=== PATIENT | female | born 1940 | race Caucasian/White ===

== ENCOUNTER → 2024-03-13 14:04 | Outpatient (CLI) | payer MEDICARE, MEDICAID, SELFPAY | PROVIDERS: PCP Internal Medicine; Referring Provider Internal Medicine; Visit Provider Physician Assistant | DX: L97.822 Non-pressure chronic ulcer of other part of left lower leg with fat layer exposed (principal); L97.812 Non-pressure chronic ulcer of other part of right lower leg with fat layer exposed; I87.2 Venous insufficiency (chronic) (peripheral); I89.0 Lymphedema, not elsewhere classified; R60.0 Localized edema; L53.9 Erythematous condition, unspecified; Z79.01 Long term (current) use of anticoagulants | CPT/HCPCS: 11042; 99204; 99213 ==

== ENCOUNTER → 2024-03-17 15:09 | Outpatient (CLI) | payer MEDICARE, MEDICAID, SELFPAY ==
--- NOTE | 2024-03-17 15:12 | DI.US.S_ITS ---
PROCEDURE: US ARTERIAL DUPLEX LE BI INDICATIONS: ulcers on bilateral lower extremities TECHNIQUE: Color and pulse Doppler interrogation was performed of both lower extremity arterial systems, with image documentation. COMPARISON: None. FINDINGS: Right lower extremity: Common femoral artery: 115 cm/sec, triphasic Deep femoral artery: Nonvisualized Proximal superficial femoral artery: 91 cm/sec, with triphasic flow. Mid superficial femoral artery: 130 cm/sec, with triphasic flow. Distal superficial femoral artery: 68 cm/sec, with triphasic flow. Popliteal artery: 86 cm/sec, with triphasic flow. Posterior tibial artery: Nonvisualized Anterior tibial artery/dorsalis pedis: 83 cm/sec, with slight parvus tardus flow. Arguello-scale imaging description: [id number] atherosclerotic plaque Left lower extremity: Common femoral artery: 174 cm/sec, with triphasic flow. Deep femoral artery: Nonvisualized. Proximal superficial femoral artery: 138 cm/sec, with triphasic flow. Mid superficial femoral artery: 163 cm/sec, with triphasic flow. Distal superficial femoral artery: Nonvisualized Popliteal artery: 127 cm/sec, Posterior tibial artery: Nonvisualized Anterior tibial artery/dorsalis pedis: 122 cm/sec, with mild parvus tardus flow. Arguello-scale imaging description: Mild to moderate atherosclerotic plaque IMPRESSION: 1. Nonvisualized bilateral posterior tibial arteries; cannot exclude complete obstruction. 2. Postobstructive waveforms to the only visualized [id number] arteries, the bilateral dorsalis pedis. Dictated by: Long Lambert M.D. on 03/18/2024 at 11:54 Approved by: Long Lambert M.D. on 03/18/2024 at 12:51
== END ==
PROVIDERS: PCP Internal Medicine; Referring Provider Physician Assistant; Visit Provider Physician Assistant
DX: L97.919 Non-pressure chronic ulcer of unspecified part of right lower leg with unspecified severity (principal); I70.202 Unspecified atherosclerosis of native arteries of extremities, left leg; I70.201 Unspecified atherosclerosis of native arteries of extremities, right leg
CPT/HCPCS: 93925

== ENCOUNTER → 2024-03-27 13:05 | Outpatient (CLI) | payer MEDICARE, MEDICAID, SELFPAY | LOC: WC 13:06 | PROVIDERS: PCP Internal Medicine; Referring Provider Internal Medicine; Visit Provider Physician Assistant | DX: I89.0 Lymphedema, not elsewhere classified (principal); E11.628 Type 2 diabetes mellitus with other skin complications; Z79.01 Long term (current) use of anticoagulants | CPT/HCPCS: 99212; 99213 ==

== ENCOUNTER → 2024-07-10 09:54 | Outpatient (CLI) | payer MEDICAID, SELFPAY | LOC: WC 10:25 | PROVIDERS: PCP Internal Medicine; Referring Provider Podiatrist; Visit Provider Physician Assistant | DX: I89.0 Lymphedema, not elsewhere classified (principal); L97.822 Non-pressure chronic ulcer of other part of left lower leg with fat layer exposed; L97.812 Non-pressure chronic ulcer of other part of right lower leg with fat layer exposed; L97.411 Non-pressure chronic ulcer of right heel and midfoot limited to breakdown of skin; L97.422 Non-pressure chronic ulcer of left heel and midfoot with fat layer exposed; E11.622 Type 2 diabetes mellitus with other skin ulcer; M79.605 Pain in left leg | CPT/HCPCS: 11042; 11045; 87070; 87075; 87077; 87147; 87186; 87205; 99214 ==

== ENCOUNTER → 2024-07-17 14:05 | Outpatient (CLI) | payer MEDICAID, SELFPAY | PROVIDERS: PCP Internal Medicine; Referring Provider Podiatrist; Visit Provider Physician Assistant | DX: I89.0 Lymphedema, not elsewhere classified (principal); L97.412 Non-pressure chronic ulcer of right heel and midfoot with fat layer exposed; L97.822 Non-pressure chronic ulcer of other part of left lower leg with fat layer exposed; L97.812 Non-pressure chronic ulcer of other part of right lower leg with fat layer exposed; L97.422 Non-pressure chronic ulcer of left heel and midfoot with fat layer exposed; I73.9 Peripheral vascular disease, unspecified; R60.0 Localized edema; M79.605 Pain in left leg; L98.8 Other specified disorders of the skin and subcutaneous tissue; R23.4 Changes in skin texture | CPT/HCPCS: 11042; 11045; 99213 ==

== ENCOUNTER → 2024-07-17 15:09 | Outpatient (CLI) | payer MEDICARE, MEDICAID, SELFPAY ==
--- NOTE | 2024-07-17 15:11 | DI.RAD.S_ITS ---
PROCEDURE: XR CALCANEOUS LT MIN 2V INDICATIONS: pressure ulcer on left heel TECHNIQUE: Two views of the calcaneus were acquired. COMPARISON: None. FINDINGS: Bones: Moderate midfoot, subtalar, and tibiotalar degenerative changes. Diffuse osseous demineralization without clear osseous erosion. Soft tissues: Soft tissue swelling. IMPRESSION: No definite osseous erosions by radiography. Background degenerative changes. Soft tissue swelling. If there is high concern for further derangement, consider MRI evaluation. Dictated by: Narciso Diego M.D. on 07/18/2024 at 13:46 Approved by: Narciso Diego M.D. on 07/18/2024 at 13:47
--- NOTE | 2024-07-17 15:11 | DI.RAD.S_ITS ---
PROCEDURE: XR CALCANEOUS RT MIN 2V INDICATIONS: pressure ulcer on right heel TECHNIQUE: Two views of the calcaneus were acquired. COMPARISON: None. FINDINGS: Bones: Background osseous demineralization. 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 There are moderate to severe degenerative changes in the midfoot, subtalar, tibiotalar regions. Partially seen screw traverses the tibiotalar joint. Plantar and calcaneal enthesopathy Soft tissues: There is diffuse soft tissue swelling IMPRESSION: Background osseous lucency likely related osseous demineralization. No clear osseous erosion identified by radiography. If there is high concern for further derangement, consider MRI evaluation. Advanced chronic degenerative and postsurgical changes. Soft tissue swelling. Dictated by: Narciso Diego M.D. on 07/18/2024 at 13:45 Approved by: Narciso Diego M.D. on 07/18/2024 at 13:46
== END ==
PROVIDERS: PCP Internal Medicine; Referring Provider Physician Assistant; Visit Provider Physician Assistant
DX: L89.619 Pressure ulcer of right heel, unspecified stage (principal); L89.629 Pressure ulcer of left heel, unspecified stage; R79.89 Other specified abnormal findings of blood chemistry; I89.0 Lymphedema, not elsewhere classified; L97.412 Non-pressure chronic ulcer of right heel and midfoot with fat layer exposed; L97.822 Non-pressure chronic ulcer of other part of left lower leg with fat layer exposed; L97.812 Non-pressure chronic ulcer of other part of right lower leg with fat layer exposed; L97.422 Non-pressure chronic ulcer of left heel and midfoot with fat layer exposed; I73.9 Peripheral vascular disease, unspecified; R60.0 Localized edema; M79.605 Pain in left leg; L98.8 Other specified disorders of the skin and subcutaneous tissue; R23.4 Changes in skin texture
CPT/HCPCS: 11042; 11045; 73650

== ENCOUNTER → 2024-08-07 14:52 | Outpatient (CLI) | payer MEDICARE, MEDICAID, SELFPAY | LOC: WC 14:53 | PROVIDERS: PCP Internal Medicine; Referring Provider Internal Medicine; Visit Provider Physician Assistant | DX: I89.0 Lymphedema, not elsewhere classified (principal); L97.822 Non-pressure chronic ulcer of other part of left lower leg with fat layer exposed; L97.812 Non-pressure chronic ulcer of other part of right lower leg with fat layer exposed; L97.422 Non-pressure chronic ulcer of left heel and midfoot with fat layer exposed; L97.412 Non-pressure chronic ulcer of right heel and midfoot with fat layer exposed; L97.112 Non-pressure chronic ulcer of right thigh with fat layer exposed; L08.89 Other specified local infections of the skin and subcutaneous tissue; R60.0 Localized edema; L53.8 Other specified erythematous conditions; M79.605 Pain in left leg; M79.604 Pain in right leg | CPT/HCPCS: 99212; 99213 ==